=== PATIENT | female | born 1945 | race Caucasian/White ===

== ENCOUNTER → 2017-05-20 11:29 | Outpatient (CLI) | payer MEDICARE, SELFPAY ==
--- NOTE | 2017-05-20 17:47 | STRESSREP ---
Stress Test Report Exercise stress test. 72-year-old lady with a history of shortness of breath. Stress protocol: Resting EKG demonstrates sinus bradycardia with a rate of 48 bpm normal intervals and noted resting blood pressure is 122/62 mmHg. The patient exercised according to regular Antonio protocol for total duration of 6 minutes attaining a maximum heart rate of 130 bpm which was 87% on maximum corrected heart rate the maximum workload attained was 7 metabolic equivalents. The patient maintained sinus rhythm throughout the recording. At rest there were no ST or T-wave changes noted suggest ischemia at peak exercise upsloping ST changes only were noted with no meet the criteria for ischemia. Upsloping changes were approximately 1.4 mm. They returned back to baseline during rest. The test was terminated due to shortness of breath. The resting blood pressure is 122/62 with a peak blood pressure 160/58. Conclusion: Exercise stress test with no EKG criteria for ischemia at a moderate workload. Good functional aerobic capacity.
== END ==
PROVIDERS: Family Provider Student in an Organized Health Care Education/Training Program; PCP Student in an Organized Health Care Education/Training Program; Visit Provider Internal Medicine Cardiovascular Disease
DX: I25.10 Atherosclerotic heart disease of native coronary artery without angina pectoris (principal); R06.02 Shortness of breath
CPT/HCPCS: 93017